=== PATIENT | female | born 1960 | race Caucasian/White ===

== ENCOUNTER 2024-04-04 08:00 | Observation (INO) | payer MEDICARE ==
[2024-03-31 09:43] VITALS: BMI 23.9
[2024-03-31 10:16] LABS: Hematocrit 45.9 % (34.9-44.5); Hemoglobin 14.8 g/dL (12.0-15.5); Mean Corpuscular HGB CONC 32.2 g/dL (32.0-36.0); Mean Corpuscular Hemoglobin 30.1 pg (27.0-33.0); Mean Corpuscular Volume 93.3 fL (81.6-98.3); Mean Platelet Volume 10.2 fL (7.4-10.4); Platelet Count 270 10x3/uL (150-450); Red Blood Cell (RBC) Count 4.92 10x6/uL (3.90-5.03); White Blood Cell (WBC) Count 5.72 10x3/uL (3.5-10.5)
[2024-03-31 10:30] LABS: Anion Gap 13 mmol/L (10-20); BUN (Urea Nitrogen) 16 mg/dL (9.8-20.1); Calc. Creatinine Clearance 0 mL/min (70-130); Calcium 9.9 mg/dL (7.8-10.44); Carbon Dioxide 28 mmol/L (23-31); Chloride 107 mmol/L (98-107); Estimated GFR 86; Glucose 86 mg/dL (80-115); Potassium 4.7 mmol/L (3.5-5.1); Sodium 143 mmol/L (136-145)
[2024-04-04] MEDS ORDERED: CeleCOXIB 100 MG CAP ONE (08:41)
[2024-04-04] MEDS ORDERED: Famotidine/PF 20 mg/2ml Vial ONE ×2 (08:42→10:50)
[2024-04-04] MEDS ORDERED: Bupivacaine HCl 0.5%/Epinephrine 1:200,000/PF 30 ml Vial ONE (10:39)
[2024-04-04] MEDS ORDERED: Methylene Blue 50 MG/10 ML AMPUL ONE (10:40)
[2024-04-04] MEDS ORDERED: Vasopressin 20 UNITS/ML VIAL ONE (10:41)
[2024-04-04] MEDS ORDERED: Lidocaine 1% w/Epinephrine 1:200K 30 ML VIAL ONE (10:42)
[2024-04-04] MEDS ORDERED: PROPOFOL 20 ML ONE (10:45)
[2024-04-04] MEDS ORDERED: fentaNYL 50 mcg/mL 1 mL Vial ONE ×3 (10:45→14:31)
[2024-04-04] MEDS ORDERED: Ondansetron PF 4 MG/2 ML Vial ONE (10:48)
[2024-04-04] MEDS ORDERED: Lidocaine 2% PF 5 ML VIAL ONE (10:48)
[2024-04-04] MEDS ORDERED: Dexamethasone 4 mg/ml Vial ONE (10:48)
[2024-04-04] MEDS ORDERED: Ketorolac Tromethamine 30 MG (1 mL) VIAL ONE (10:48)
[2024-04-04] MEDS ORDERED: Rocuronium Bromide 10 MG/ML (10ML VIAL) ONE (10:48)
[2024-04-04] MEDS ORDERED: SUGAMMADEX SODIUM 200 MG/2 ML VIAL ONE (10:48)
[2024-04-04] MEDS ORDERED: CEFAZOLIN 2 GM VIAL ONE (11:03)
[2024-04-04] MEDS ORDERED: hydrALAZINE 20 MG/ML VIAL ONE (12:00)
[2024-04-04] MEDS ORDERED: Promethazine HCl 25 MG/ML VIAL IM PRN (13:41)
[2024-04-04] MEDS ORDERED: Bisacodyl 10 MG SUPP PR PRN (13:41)
[2024-04-04] MEDS ORDERED: HYDROcodone/Acetaminophen 5/325 mg Tablet PO PRN (13:41)
[2024-04-04] MEDS ORDERED: Zolpidem Tartrate 5 MG TAB PO PRN (13:41)
[2024-04-04] MEDS ORDERED: diphenhydrAMINE 25 MG CAP PO PRN (13:41)
[2024-04-04] MEDS ORDERED: Ondansetron PF 4 MG/2 ML Vial IVP PRN (13:41)
[2024-04-04] MEDS ORDERED: fentaNYL 50 mcg/mL 1 mL Vial SLOW IVP PRN (15:57)
[2024-04-04] MEDS: Simethicone Chewable 80 MG TAB PO PRN (18:10)
[2024-04-04] MEDS: Ketorolac Tromethamine 30 MG (1 mL) VIAL IVP SCH (18:10)
[2024-04-05] MEDS: Sodium Chloride 0.9% 1,000 ML IV SCH (00:19)
[2024-04-05] MEDS: Docusate 100 MG CAP PO SCH (00:21)
[2024-04-05 05:15] LABS: Hematocrit 36.2 % (34.9-44.5); Hemoglobin 12.1 g/dL (12.0-15.5); Mean Corpuscular HGB CONC 33.4 g/dL (32.0-36.0); Mean Corpuscular Hemoglobin 31.2 pg (27.0-33.0); Mean Corpuscular Volume 93.3 fL (81.6-98.3); Mean Platelet Volume 9.5 fL (7.4-10.4); Platelet Count 229 10x3/uL (150-450); RBC Distribution Width 12.3 % (11.5-14.5); Red Blood Cell (RBC) Count 3.88 10x6/uL (3.90-5.03)
[2024-04-05] MEDS: Acetaminophen 325 MG TAB PO PRN (08:24)
[2024-04-05] MEDS: FLU (Fluad Triv) TS24-25 (65UP)/MF59C/PF 45 MCG/0.5 ML Syringe IM ONE (09:33)
[2024-04-05] MEDS: HYDROcodone/Acetaminophen 5/325 mg Tablet PO PRN (11:13)
[2024-04-05 11:28] VITALS: BP 138/67; TEMP 97.7
[2024-04-05] MEDS: Ibuprofen 800 MG TAB PO SCH (14:31)
== END 2024-04-05 15:30 | disposition home or self-care (01) ==
LOC: CSHSDC 08:00 → CSHPP 15:52
PROVIDERS: ADMIT Student in an Organized Health Care Education/Training Program; ATTEND Student in an Organized Health Care Education/Training Program
PROC: 0UT94ZZ Resection of Uterus, Percutaneous Endoscopic Approach (ICD-10-PCS; principal; 2024-04-04)
PROC: 0UT74ZZ Resection of Bilateral Fallopian Tubes, Percutaneous Endoscopic Approach (ICD-10-PCS; 2024-04-04)
PROC: 0UT24ZZ Resection of Bilateral Ovaries, Percutaneous Endoscopic Approach (ICD-10-PCS; 2024-04-04)
PROC: 0JQC3ZZ Repair Pelvic Region Subcutaneous Tissue and Fascia, Percutaneous Approach (ICD-10-PCS; 2024-04-04)
PROC: 0JQC3ZZ Repair Pelvic Region Subcutaneous Tissue and Fascia, Percutaneous Approach (ICD-10-PCS; 2024-04-04)
DX: N81.3 Complete uterovaginal prolapse (principal); E03.9 Hypothyroidism, unspecified; N81.2 Incomplete uterovaginal prolapse; Z79.890 Hormone replacement therapy; Z79.899 Other long term (current) drug therapy
CPT/HCPCS: 57260; 57283; 58571; 80048; 85027 ×2; 86850; 86900; 86901; J1100; J1885 ×2; J2405; J2704; J3010; J3490; J7030; S2900; 36415; 88307; J0360